=== PATIENT | female | born 1995 | race Caucasian/White ===

== ENCOUNTER 2019-04-01 11:50 | Inpatient (IN) ==
[2019-04-01] MEDS ORDERED: Metoclopramide 10 MG/2 ML VIAL IVP PRN (12:11)
[2019-04-01] MEDS ORDERED: Naloxone 0.4 MG/ML INJ IVP PRN (12:11)
[2019-04-01] MEDS ORDERED: *HR* Nalbuphine 10 MG/ML AMPUL IVP PRN (12:11)
[2019-04-01] MEDS ORDERED: Famotidine 20 MG/2 ML VIAL IVP PRN (12:11)
[2019-04-01] MEDS ORDERED: Azithromycin 500 MG in 0.9 % Sodium Chloride 250 ML IVPB PRN (12:12)
[2019-04-01] MEDS ORDERED: Lidocaine 1% 20 ML MDV INFILT PRN (12:12)
[2019-04-01] MEDS ORDERED: Ondansetron 4 MG/2 ML VIAL IVP PRN (12:12)
[2019-04-01] MEDS ORDERED: Ringers Solution, Lactated 1,000 ML IVC SCH (12:15)
[2019-04-01] MEDS ORDERED: Ringers Solution, Lactated 1,000 ML ONE (12:36)
[2019-04-01 12:45] LABS: Basophils % 0.3 %; Eosinophils % 0.1 %; Hematocrit 37.8 % (35.3-44.9); Hemoglobin 13.6 g/dL (11.5-15.4); Immature Granulocytes % 0.5 % (0-4); Lymphocytes % 12.8 %; Mean Corpuscular Hemoglobin 33.1 pg (28.0-33.3); Mean Platelet Volume 8.9 fL (9.4-12.4); Monocytes # 0.6 K/mcL (0.0-1.3); Monocytes % 3.7 %; Neutrophils # 12.7 K/mcL (1.6-8.9); Platelet Count 233 K/mcL (140-400); Red Blood Count 4.11 M/mcL (3.82-4.97); Red Cell Distribution Width 12.6 % (11.5-14.5); Segmented Neutrophils % 82.6 %; White Blood Count 15.4 K/mcL (4.3-11.1)
[2019-04-01] MEDS ORDERED: Oxytocin 20 units/ LR 1000 mL 20 UNIT/1,000 ML BAG IVC ONE ×2 (13:06→14:54)
[2019-04-01 13:11] LABS: Amphetamine Screen,Urine Negative ng/mL (Cutoff=1000); Barbiturate Screen,Urine Negative ng/mL (Cutoff=200); Benzodiazepines Screen,Urine Negative ng/mL (Cutoff=200); Cannabinoid Screen,Urine Negative ng/mL (Cutoff = 50); Cocaine Screen,Urine Negative ng/mL (Cutoff= 300); Opiate Screen,Urine Negative ng/mL (Cutoff=300); Phencyclidine Screen,Urine Negative ng/mL (Cutoff=25)
[2019-04-01] MEDS ORDERED: Oxytocin 20 units/ LR 1000 mL 20 UNIT/1,000 ML BAG IVC SCH ×3 (15:00→17:54)
[2019-04-01] MEDS ORDERED: Measles/Mumps/Rubella Vacc 0.5 ML VIAL SQ PRN (17:54)
[2019-04-01] MEDS ORDERED: Acetaminophen 325 MG TABLET PO PRN (17:54)
[2019-04-01] MEDS ORDERED: Lanolin 7 G OINT...G. TP PRN (17:54)
[2019-04-01] MEDS ORDERED: Rho Immune Globulin 1,500 UNIT SYRINGE IM PRN (17:54)
[2019-04-01] MEDS ORDERED: Benzocaine/Menthol 56 GM AEROSOL SPRAY TP PRN (17:54)
[2019-04-01] MEDS: Ibuprofen 600 MG TABLET PO PRN (21:37)
[2019-04-02] MEDS ORDERED: Prenatal Vit/FA 1 EACH TABLET PO SCH (09:00)
[2019-04-02 09:02] VITALS: BP 104/70
[2019-04-02] MEDS: Ibuprofen 600 MG TABLET PO PRN (12:32)
== END 2019-04-02 17:10 | disposition home or self-care (01) | DRG 807 ==
LOC: 1NENULAB → EDBD → OBSVTOIN 11:50 → 1NENUOBS 17:02
PROVIDERS: ADMIT Registered Nurse; ATTEND Registered Nurse